=== PATIENT | female | born 1995 | race Caucasian/White ===

== ENCOUNTER 2018-05-27 18:32 | Emergency (ER) | payer MEDICAID ==
[~2018-05-27] VITALS: Ht 152.4 cm; Wt 63.0 kg
[2018-05-27 18:36] VITALS: BP_SYST 141
--- NOTE | 2018-05-27 18:44 | NUR ---
Patient to ER bed 07 to gown for evaluation. Side rails up.
[2018-05-27] MEDS ORDERED: NACL 0.9% 1,000 ML IV ONE (18:45)
--- NOTE | 2018-05-27 18:48 | NUR ---
Dr. Rolle at bedside to examine patient.
--- NOTE | 2018-05-27 19:00 | NUR ---
Patient Presented to ER with vaginal bleeding, 6 weeks . Patient instructed by PSYCHOLOGIST COUNSELING to come to ER. Patient states she has had no food/drink since 2 pm. Patient ambulating, significant other present.
[2018-05-27 19:20] LABS: BASOPHILS # (AUTO) 0.1 K/uL (0.0-0.2); BASOPHILS % (AUTO) 0.5 % (0.0-2.0); EOSINOPHILS # (AUTO) 0.2 K/uL (0.0-0.4); EOSINOPHILS % (AUTO) 1.7 % (0.0-4.0); HEMATOCRIT 42.7 % (36-48); HEMOGLOBIN 14.2 g/dL (12.0-16.0); LYMPHOCYTES # (AUTO) 3.1 K/uL (1.0-5.5); LYMPHOCYTES % (AUTO) 24.4 % (20.5-51.5); MEAN CORPUSCULAR HEMOGLOBIN 31 pg (27-31); MEAN CORPUSCULAR HGB CONC 33 % (32-36); MEAN CORPUSCULAR VOLUME 92 fL (79.0-98.0); MONOCYTES # (AUTO) 0.7 K/uL (0.0-1.0); MONOCYTES % (AUTO) 5.4 % (1.7-9.3); NEUTROPHILS # (AUTO) 8.4 K/uL (1.8-7.7); PLATELET COUNT (AUTO) 356 K/uL (130-430); RED BLOOD CELL COUNT(AUTO) 4.66 MIL/uL (4.2-6.2); RED CELL DISTRIBUTION WIDTH 12.2 % (9.0-15.0); WHITE BLOOD COUNT (AUTO) 12.5 K/uL (4.8-10.8)
--- NOTE | 2018-05-27 19:29 | NUR ---
Patient unable to urinate at this time.
[2018-05-27 19:38] LABS: CREATININE 0.84 mg/dL (0.55-1.30); POTASSIUM 3.6 mmol/L (3.5-5.1)
[2018-05-27 19:39] LABS: INR 0.9 (0.8-1.2); PROTHROMBIN TIME 9.6 SECS (9.5-12.5)
[2018-05-27] MEDS ORDERED: ONDANSETRON HCL 4 MG/2 ML VIAL IVP ONE (19:45)
--- NOTE | 2018-05-27 19:56 | NUR ---
[facility] hair in [facility] - 05/27/18 at 1957 by SDEDTD Patient taken to Ultrasound in [facility]
--- NOTE | 2018-05-27 19:57 | NUR ---
Patient taken to Ultrasound via gurney.
[2018-05-27 20:03] LABS: TOTAL BILIRUBIN 0.4 mg/dL (0.0-1.0)
--- NOTE | 2018-05-27 20:30 | NUR ---
Pt ambulated to bathroom at this time, steady gait
--- NOTE | 2018-05-27 20:42 | NUR ---
Dr. Agarwal at bedside to examine patient
--- NOTE | 2018-05-27 20:59 | NUR ---
Per Dr. Agarwal administered order of Toradol at this time, consideration of HCG level. Toradol not contraindicated at this time.
[2018-05-27] MEDS ORDERED: KETOROLAC TROMETHAMINE 30 MG VIAL IVP ONE (21:00)
[2018-05-27 21:35] VITALS: BP_SYST 142
--- NOTE | 2018-05-27 21:38 | NUR ---
Patient given written and verbal discharge instructions and verbalizes understanding. ER MD discussed with patient the results and treatment provided. Patient in stable condition. ID arm band removed. IV catheter removed intact and dressing applied, no active bleeding. Rx of Zofran and Ibuprofen given. Patient educated on pain management and to follow up with PMD. Pain Scale 2/10 tolerable for patient . Opportunity for questions provided and answered. Medication side effect fact sheet provided.
== END 2018-05-27 21:33 | disposition home or self-care (01) ==
LOC: SED 18:32
DX: O20.0 Threatened abortion (principal); R03.0 Elevated blood-pressure reading, without diagnosis of hypertension; Z3A.01 Less than 8 weeks gestation of pregnancy
CPT/HCPCS: 36415; 76856; 80053; 81025; 84702; 85025; 85610; 86886; 86900; 86901; 96374; 96375; 99284; J1885; J2405; J7030

== ENCOUNTER 2018-05-28 14:39 | Day surgery (SDC) | payer MEDICAID ==
[~2018-05-28] VITALS: Ht 154.9 cm; Wt 58.1 kg
[2018-05-28 14:39] VITALS: BP_SYST 126
[2018-05-28 15:19] LABS: BASOPHILS % (AUTO) 0.4 % (0.0-2.0); EOSINOPHILS # (AUTO) 0.2 K/uL (0.0-0.4); EOSINOPHILS % (AUTO) 1.9 % (0.0-4.0); HEMATOCRIT 42.5 % (36-48); HEMOGLOBIN 14.3 g/dL (12.0-16.0); LYMPHOCYTES # (AUTO) 2.8 K/uL (1.0-5.5); LYMPHOCYTES % (AUTO) 24.8 % (20.5-51.5); MEAN CORPUSCULAR HEMOGLOBIN 31 pg (27-31); MEAN CORPUSCULAR HGB CONC 34 % (32-36); MEAN CORPUSCULAR VOLUME 92 fL (79.0-98.0); MONOCYTES # (AUTO) 0.5 K/uL (0.0-1.0); MONOCYTES % (AUTO) 4.7 % (1.7-9.3); NEUTROPHILS # (AUTO) 7.7 K/uL (1.8-7.7); NEUTROPHILS % (AUTO) 68.2 % (40.0-70.0); PLATELET COUNT (AUTO) 334 K/uL (130-430); RED BLOOD CELL COUNT(AUTO) 4.61 MIL/uL (4.2-6.2); RED CELL DISTRIBUTION WIDTH 12.3 % (9.0-15.0); WHITE BLOOD COUNT (AUTO) 11.2 K/uL (4.8-10.8)
[2018-05-28 15:39] LABS: CALCIUM 8.8 mg/dL (8.4-11.0); CREATININE 0.54 mg/dL (0.55-1.30); POTASSIUM 3.4 mmol/L (3.5-5.1)
[2018-05-28 15:43] LABS: PROTHROMBIN TIME 10.1 SECS (9.5-12.5)
[2018-05-28 15:44] LABS: ALBUMIN 4.3 g/dL (3.4-4.8); TOTAL BILIRUBIN 0.7 mg/dL (0.0-1.0)
[2018-05-28] MEDS ORDERED: fentaNYL CITRATE/PF 100 MCG/2 ML AMP IVP ONE (15:45)
[2018-05-28] MEDS ORDERED: LR 1,000 ML IV.SOLN IV ONE (15:45)
[2018-05-28] MEDS ORDERED: SEVOFLURANE 15 MIN GAS INH ONE (15:45)
[2018-05-28] MEDS ORDERED: MIDAZOLAM HCL 5 MG/5 ML VIAL IVP ONE (15:45)
[2018-05-28] MEDS ORDERED: fentaNYL CITRATE/PF 100 MCG/2 ML AMP IVP PRN ×2 (16:15)
[2018-05-28] MEDS ORDERED: ONDANSETRON HCL 4 MG/2 ML VIAL IVP PRN (16:15)
[2018-05-28 16:21] VITALS: BP_SYST 133
[2018-05-28] MEDS ORDERED: OXYTOCIN 10 UNIT/ML VIAL IV ONE (16:45)
[2018-05-28] MEDS ORDERED: LR 1,000 ML IV SCH (16:45)
== END 2018-05-28 18:10 | disposition home or self-care (01) ==
LOC: SED 14:39 → SMU 15:40 → SDS 15:43 → SMU 15:45 → SDS 18:10
PROVIDERS: ATTEND Obstetrics & Gynecology
DX: O02.1 Missed abortion (principal); Z79.899 Other long term (current) drug therapy; Z79.01 Long term (current) use of anticoagulants
CPT/HCPCS: 36415; 59820; 80053; 85025; 85610; 85730; 86901; 88305; J2250; J3010; J7120